=== PATIENT | female | born 1995 | race Caucasian/White ===

== ENCOUNTER 2019-08-21 20:01 | Emergency (ER) | payer BC ==
[2019-08-21] MEDS ORDERED: SODIUM CHLORIDE 0.9% 1,000 ML IV STA (21:13)
[2019-08-21] MEDS ORDERED: SODIUM CHLORIDE 0.9% 500 ML 500 ML IV STA (21:13)
--- NOTE | 2019-08-21 21:41 | ED ---
Abdominal Pain HPI - General Chief Complaint: Abdominal Pain Stated Complaint: Groin mass Time Seen by Provider: 08/21/19 21:13 Source: patient Mode of arrival: ambulatory Limitations: no limitations - History of Present Illness Initial Comments: 23-year-old female presented for discomfort in the left groin. Patient states the past 2 days she has felt a discomfort in the left groin. Patient states she was not sure if this is a lymph node. Or something related to the ovary. Patient denies any upper abdominal pain. Patient denies any dysuria urgency frequency hematuria patient denies any specific vaginal discharge or orders. Patient denies could turn cervical sex a transmitted diseases. Patient denies any redness of the genital area or lesions. Patient denies vomiting or diarrhea. Patient states she has had occasional nausea she does not feel this is connected with the left groin discomfort. Patient states the discomfort increases with palpation or movement. Remaining review of systems negative. Upon arrival patient appears well signs of acute distress. Patient denies any changes in bowel movements. - Related Data Previous Rx's Medication Instructions Recorded Cephalexin [Keflex] 500 mg PO Q8HR 5 Days #15 cap 08/21/19 Allergies Allergy/AdvReac Type Severity Reaction Status Date / Time No Known Allergies Allergy Verified 08/21/19 22:01 Review of Systems ROS Statement: Those systems with pertinent positive or pertinent negative responses have been documented in the HPI. ROS Other: All systems not noted in ROS Statement are negative. Past Medical History Past Medical History: No Reported History History of Any Multi-Drug Resistant Organisms: None Reported Past Surgical History: No Surgical Hx Reported Past Psychological History: No Psychological Hx Reported Smoking Status: Never smoker Past Alcohol Use History: Occasional Past Drug Use History: Marijuana General Exam - General Exam Comments Initial Comments: General: The patient is awake and alert, in no distress, and does not appear acutely ill. Eye: Pupils are equal, round and reactive to light, extra-ocular movements are intact. No nystagmus. There is normal conjunctiva bilaterally. No signs of icterus. Cardiovascular: There is a regular rate and rhythm. No murmur, rub or gallop is appreciated. Respiratory: Lungs are clear to auscultation, respirations are non-labored, breath sounds are equal. No wheezes, stridor, rales, or rhonchi. Gastrointestinal: Soft, non-distended, non-tender abdomen, no tenderness to palpation of the pelvic region without masses or organomegaly noted. There is no rebound or guarding present. Possible lymph node in the left groin approximately 2 and half centimeters mobile round no erythema no fluctuance mild tenderness with palpation Musculoskeletal: Normal ROM, no tenderness. Strength 5/5. Sensation intact. Pulses equal bilaterally 2+. Neurological: A&O x 3. CN II-XII intact grossly, There are no obvious motor or sensory deficits. Coordination appears grossly intact. Speech is normal. Skin: Skin is warm and dry and no rashes or lesions are noted. Psychiatric: Cooperative, appropriate mood & affect, normal judgment. Limitations: no limitations Course Vital Signs 08/21/19 08/21/19 20:13 23:08 Temperature 97.9 F 98.0 F Pulse Rate 72 70 Respiratory 20 16 Rate Blood Pressure 123/81 118/65 O2 Sat by Pulse 99 100 Oximetry Medical Decision Making - Medical Decision Making 22-year-old female presenting to [facility] for evaluation of left groin mass. Patient states that she's also had occasional nausea. HCG negative. Laboratory studies stable no electrolyte derangements. Ultrasound of the groin revealed 3 cm with adenopathy which is palpable on examination. Patient no reproducible pelvic pain she states the pain was in the groin. Pelvic examination revealed scant amount discharge. Patient would like to wait for STI treatment pending results. Urinalysis concerning for UTI patient be treated Keflex although it was not a clean catch so culture is pending. I discussed the case with attending provider Dr. Lange who is agreeable care plan and discharge at this time. Patient discharged appearing well. Patient is a aware of the importance of follow-up with primary care provider - Lab Data Result diagrams: 08/21/19 21:30 08/21/19 21:30 Lab Results 08/21/19 08/21/19 08/21/19 Range/Units 21:30 21:30 21:30 WBC 5.1 (3.8-10.6) k/uL RBC 4.40 (3.80-5.40) m/uL Hgb 13.5 (11.4-16.0) gm/dL Hct 41.2 (34.0-46.0) % MCV 93.5 (80.0-100.0) fL MCH 30.8 (25.0-35.0) pg MCHC 32.9 (31.0-37.0) g/dL RDW 13.0 (11.5-15.5) % Plt Count 149 L (150-450) k/uL Neutrophils % 43 % Lymphocytes % 39 % Monocytes % 11 % Eosinophils % 2 % Basophils % 1 % Neutrophils # 2.2 (1.3-7.7) k/uL Lymphocytes # 2.0 (1.0-4.8) k/uL Monocytes # 0.6 (0-1.0) k/uL Eosinophils # 0.1 (0-0.7) k/uL Basophils # 0.1 (0-0.2) k/uL Sodium 140 (137-145) mmol/L Potassium 3.9 (3.5-5.1) mmol/L Chloride 103 (98-107) mmol/L Carbon Dioxide 26 (22-30) mmol/L Anion Gap 11 mmol/L BUN 16 (7-17) mg/dL Creatinine 0.76 (0.52-1.04) mg/dL Est GFR (CKD-EPI)AfAm >90 (>60 ml/min/1.73 sqM) Est GFR (CKD-EPI)NonAf >90 (>60 ml/min/1.73 sqM) Glucose 89 (74-99) mg/dL Calcium 9.7 (8.4-10.2) mg/dL Total Bilirubin 0.4 (0.2-1.3) mg/dL AST 17 (14-36) U/L ALT 16 (9-52) U/L Alkaline Phosphatase 51 (38-126) U/L Total Protein 8.0 (6.3-8.2) g/dL Albumin 4.7 (3.5-5.0) g/dL Lipase 40 (23-300) U/L Urine Color Urine Appearance (Clear) Urine pH (5.0-8.0) Ur Specific Pickerel (1.001-1.035) Urine Protein (Negative) Urine Glucose (UA) (Negative) Urine Ketones (Negative) Urine Blood (Negative) Urine Nitrite (Negative) Urine Bilirubin (Negative) Urine Urobilinogen (<2.0) mg/dL Ur Leukocyte Esterase (Negative) Urine WBC (0-5) /hpf Ur Squamous Epith Cells (0-4) /hpf Amorphous Sediment (None) /hpf Urine Bacteria (None) /hpf Urine Mucus (None) /hpf Urine HCG, Qual Not Detected (Not Detectd) Trichomonas Ag (Rapid) (Negative) 08/21/19 08/21/19 Range/Units 21:30 22:50 WBC (3.8-10.6) k/uL RBC (3.80-5.40) m/uL Hgb (11.4-16.0) gm/dL Hct (34.0-46.0) % MCV (80.0-100.0) fL MCH (25.0-35.0) pg MCHC (31.0-37.0) g/dL RDW (11.5-15.5) % Plt Count (150-450) k/uL Neutrophils % % Lymphocytes % % Monocytes % % Eosinophils % % Basophils % % Neutrophils # (1.3-7.7) k/uL Lymphocytes # (1.0-4.8) k/uL Monocytes # (0-1.0) k/uL Eosinophils # (0-0.7) k/uL Basophils # (0-0.2) k/uL Sodium (137-145) mmol/L Potassium (3.5-5.1) mmol/L Chloride (98-107) mmol/L Carbon Dioxide (22-30) mmol/L Anion Gap mmol/L BUN (7-17) mg/dL Creatinine (0.52-1.04) mg/dL Est GFR (CKD-EPI)AfAm (>60 ml/min/1.73 sqM) Est GFR (CKD-EPI)NonAf (>60 ml/min/1.73 sqM) Glucose (74-99) mg/dL Calcium (8.4-10.2) mg/dL Total Bilirubin (0.2-1.3) mg/dL AST (14-36) U/L ALT (9-52) U/L Alkaline Phosphatase (38-126) U/L Total Protein (6.3-8.2) g/dL Albumin (3.5-5.0) g/dL Lipase (23-300) U/L Urine Color Yellow Urine Appearance Cloudy H (Clear) Urine pH 6.0 (5.0-8.0) Ur Specific Pickerel 1.029 (1.001-1.035) Urine Protein 1+ H (Negative) Urine Glucose (UA) Negative (Negative) Urine Ketones Negative (Negative) Urine Blood Negative (Negative) Urine Nitrite Positive H (Negative) Urine Bilirubin Negative (Negative) Urine Urobilinogen <2.0 (<2.0) mg/dL Ur Leukocyte Esterase Large H (Negative) Urine WBC 115 H (0-5) /hpf Ur Squamous Epith Cells 97 H (0-4) /hpf Amorphous Sediment Occasional H (None) /hpf Urine Bacteria Many H (None) /hpf Urine Mucus Many H (None) /hpf Urine HCG, Qual (Not Detectd) Trichomonas Ag (Rapid) Negative (Negative) Disposition Clinical Impression: Lymphadenopathy, inguinal, UTI (urinary tract infection), Nausea Disposition: HOME SELF-CARE Condition: Good Instructions (If sedation given, give patient instructions): Urinary Tract Infection in Women (ED), Lymphadenopathy (ED) Additional Instructions: Please use medication as discussed. Please follow-up with family doctor in the next 2 days. Please return to emergency room if the symptoms increase or worsen or for any other concerns. Prescriptions: Cephalexin [Keflex] 500 mg PO Q8HR 5 Days #15 cap Is patient prescribed a controlled substance at d/c from ED?: No Referrals: None,Stated [Primary Care Provider] - 1-2 days Time of Disposition: 22:26
[2019-08-21 21:48] LABS: Basophils # (A) 0.1 k/uL (0-0.2); Basophils % (A) 1 %; Eosinophils # (A) 0.1 k/uL (0-0.7); Eosinophils % (A) 2 %; HCT 41.2 % (34.0-46.0); HGB 13.5 gm/dL (11.4-16.0); Lymphocytes % (A) 39 %; MCH 30.8 pg (25.0-35.0); MCHC 32.9 g/dL (31.0-37.0); MCV 93.5 fL (80.0-100.0); Mean Platelet Volume 7.6; Monocytes # (A) 0.6 k/uL (0-1.0); Monocytes % (A) 11 %; Neutrophils # (A) 2.2 k/uL (1.3-7.7); Neutrophils % (A) 43 %; Platelet Count 149 k/uL (150-450); WBC 5.1 k/uL (3.8-10.6)
[2019-08-21 21:58] LABS: ALT 16 U/L (9-52); AST 17 U/L (14-36); African American GFR (CKD) >90 (>60 ml/min/1.73 sqM); Albumin 4.7 g/dL (3.5-5.0); Alkaline Phosphatase 51 U/L (38-126); Anion Gap 11 mmol/L; Blood Urea Nitrogen 16 mg/dL (7-17); Calcium 9.7 mg/dL (8.4-10.2); Carbon Dioxide 26 mmol/L (22-30); Chloride 103 mmol/L (98-107); Glucose 89 mg/dL (74-99); Potassium 3.9 mmol/L (3.5-5.1); Sodium 140 mmol/L (137-145); Total Bilirubin 0.4 mg/dL (0.2-1.3)
--- NOTE | 2019-08-21 21:59 | US ---
EXAMINATION TYPE: US groin LT DATE OF EXAM: 08/21/2019 COMPARISON: NONE CLINICAL HISTORY: groin mass/ r/o hernia. Palpable in left groin At location of palpable within left groin there are multiple lymph nodes seen. Largest = 3.0cm and st ill maintains fatty hilum and normal vascularity noted. IMPRESSION: There are numerous enlarged left inguinal lymph nodes that measure up to 3 cm in maximum dimension. No discrete fluid collection. No evidence of a hernia.
[2019-08-21 22:01] LABS: Amorphous Sediment,Urine Occasional /hpf; Appearance,Urine Cloudy (Clear); Bacteria,Urine Many /hpf; Bilirubin,Urine Negative (Negative); Blood,Urine Negative (Negative); Color,Urine Yellow; Glucose,Urine (UA) Negative (Negative); Ketones,Urine Negative (Negative); Leukocyte Esterase,Urine Large (Negative); Mucus,Urine Many /hpf; Nitrite,Urine Positive (Negative); Protein,Urine 1+ (Negative); Specific Gravity,Urine 1.029 (1.001-1.035); Squamous Epithelial Cell,Urine 97 /hpf (0-4); Urobilinogen,Urine <2.0 mg/dL (<2.0); WBC,Urine 115 /hpf (0-5)
[2019-08-21] MEDS ORDERED: CEPHALEXIN 500MG STARTER PACK 4 CAP BTL PO STA (22:24)
[2019-08-21 23:08] VITALS: BP 118/65; PULSE 70; RESP 16; TEMP 98
[2019-08-23 15:56] LABS: N. gonorrhoeae,PCR Negative (Neg,Equiv); Neisseria Source Vagina
[2019-08-23 15:58] LABS: C. trachomatis,PCR Negative (Neg,Equiv); Chlamydia trachomatis Source Vagina
== END 2019-08-21 23:08 | disposition home or self-care (01) ==
LOC: EC 20:01
DX: N39.0 Urinary tract infection, site not specified (principal); R59.0 Localized enlarged lymph nodes; R11.0 Nausea
CPT/HCPCS: 36415; 80053; 81001; 81025; 83690; 85025; 87070; 87077; 87086; 87186; 87491; 87591; 87808; 93005; 96360; 99284